=== PATIENT | male | born 1945 | race Caucasian/White ===

== ENCOUNTER 2019-03-18 12:03 | Outpatient (CLI) | payer MEDICARE ==
--- NOTE | 2019-03-18 12:40 | RAD ---
Right knee 4 views HISTORY: Right knee pain. FINDINGS: Mild joint space narrowing medial compartment. Mild tricompartmental osteophytosis. No acut e fracture, dislocation, or fluid distention of the suprapatellar bursa. IMPRESSION: Mild osteoarthritic changes right knee.
--- NOTE | 2019-03-18 12:41 | RAD ---
Left knee 4 views HISTORY: Left knee pain. Fall. FINDINGS: There is mild joint space narrowing of the medial compartment. Mild tricompartmental osteop hytosis. No acute fracture, dislocation, or fluid distention of the suprapatellar bursa. IMPRESSION: No acute osseous abnormalities are demonstrated.
--- NOTE | 2019-03-18 12:46 | RAD ---
Right shoulder 3 views HISTORY: Right shoulder pain. FINDINGS: Moderate joint space narrowing and osteophytosis. Subchondral sclerosis. No acute fracture, dislocation, or aggressive osseous erosions. IMPRESSION: Moderate osteoarthritic changes right shoulder.
--- NOTE | 2019-03-18 12:47 | RAD ---
Cervical spine 5 views HISTORY: Neck pain. FINDINGS: There is straightening of the normal lordotic curvature. Osteophytosis throughout the verte bral bodies and facets. Vertebral body heights are maintained. Minimal degenerative spondylolisthesis at the C4-5 level. Minimal degenerative retrolisthesis at the C3-4 level. Cervicothoracic junction is intact. No acute fracture or dislocation. IMPRESSION: Prominent osseous degenerative changes cervical spine. No acute osseous abnormalities are demonstrated.
== END 2019-03-18 12:04 | disposition home or self-care (01) ==
LOC: BICRAD 12:03
PROVIDERS: ATTEND Internal Medicine
DX: M25.561 Pain in right knee (principal); M25.562 Pain in left knee; M25.511 Pain in right shoulder; M54.2 Cervicalgia; M47.812 Spondylosis without myelopathy or radiculopathy, cervical region; M19.011 Primary osteoarthritis, right shoulder; M17.11 Unilateral primary osteoarthritis, right knee
CPT/HCPCS: 72040

== ENCOUNTER 2020-10-15 17:00 | Emergency (ER) | payer MEDICARE ==
[2020-10-15] MEDS ORDERED: Fluorescein Opthalmic Strip ONE (18:08)
[2020-10-15] MEDS ORDERED: Proparacaine 0.5% Opth 15 ML BOT ONE (18:08)
== END 2020-10-15 18:35 | disposition home or self-care (01) ==
LOC: ERS 17:00
DX: S05.02XA Injury of conjunctiva and corneal abrasion without foreign body, left eye, initial encounter (principal); E78.5 Hyperlipidemia, unspecified; I10 Essential (primary) hypertension; Z79.899 Other long term (current) drug therapy; X58.XXXA Exposure to other specified factors, initial encounter
CPT/HCPCS: 99282

== ENCOUNTER 2022-11-12 10:47 | Outpatient (CLI) | payer MEDICARE | END 2022-11-12 10:48 | disposition home or self-care (01) | LOC: RAD 10:47 | PROVIDERS: ATTEND Internal Medicine | DX: M25.561 Pain in right knee (principal); M25.562 Pain in left knee ==